=== PATIENT | female | born 1970 | race Caucasian/White ===

== ENCOUNTER 2017-08-26 08:47 | Emergency (ER) | END 2017-08-26 10:11 | disposition home or self-care (01) ==

== ENCOUNTER 2018-02-15 09:23 | Emergency (ER) | END 2018-02-15 10:44 | disposition home or self-care (01) ==

== ENCOUNTER 2018-07-09 13:35 | Emergency (ER) | payer OTHER ==
[~2018-07-09] VITALS: Ht 160 cm; Wt 96.2 kg
[~2018-07-09 13:35] MED LIST: CYCL10TA7 PO; IBUP-1544 PO; MED4DP PO; NAPR-985 PO
[2018-07-09 13:50] VITALS: BP 147/91; PULSE 66; RESP 20; Ht 160 cm; Wt 96.2 kg
[2018-07-09] MEDS ORDERED: METOCLOPRAMIDE 10 MG INJ IV ONE (15:00)
[2018-07-09] MEDS ORDERED: SOD CHLORIDE 0.9% 1,000 ML IV ONE (15:00)
[2018-07-09] MEDS ORDERED: DIPHENHYDRAMINE 50 MG INJ IV ONE (15:00)
[2018-07-09] MEDS ORDERED: BUTA1CAP38 PO (16:27)
--- NOTE | 2018-07-09 17:05 | ERD ---
ER Documentation Chief Complaint Chief Complaint NAQVI since yesterday; L side of face numbness; neuro intact HPI 47-year-old female patient with no significant past medical history presents to ED complaining of a headache that started yesterday. States that she feels like she has some left-sided facial numbness however denies any weakness. Reports that she has some slight left back pain. Denies any dysuria, urgency, frequency, fever, cough, chills, rhinorrhea. ROS All systems reviewed and are negative except as per history of present illness. Medications Home Meds Active Scripts Mhrsbieejo-Yxzksksldljru-Dyqdzeny* (Fioricet*) 50-300-40 Mg Capsule, 1 CAP PO Q6H, #20 CAP Prov:THANG ALVAREZ PA-C 07/09/18 Ibuprofen* (Ibuprofen*) 800 Mg Tablet, 800 MG PO Q8H PRN for PAIN, #30 TAB Prov:DANI JEAN BAPTISTE DO 02/15/18 Methylprednisolone* (Medrol* DOSE PACK) 4 Mg/Dose-Pack Tab.ds.pk, 4 MG PO . DIRECTED, #1 PACKET Prov:MIGDALIA THRASHER PA-C 08/26/17 Cyclobenzaprine Hcl* (Cyclobenzaprine Hcl*) 10 Mg Tablet, 10 MG PO TID, #15 TAB Prov:MIGDALIA THRASHER PA-C 08/26/17 Naproxen* (Naprosyn*) 500 Mg Tablet, 500 MG PO BID PRN for PAIN AND/OR INFLAMMATION, #30 TAB Prov:MIGDALIA THRASHER PA-C 08/26/17 Allergies Allergies: Coded Allergies: No Known Allergy (Unverified , 07/09/18) PMhx/Soc History of Surgery: Yes (left shoulder) Anesthesia Reaction: No Hx Neurological Disorder: No Hx Respiratory Disorders: Yes (asthma) Hx Cardiac Disorders: No Hx Psychiatric Problems: No Hx Miscellaneous Medical Probl: Yes (Right shoulder injury) Hx Alcohol Use: No Hx Substance Use: No Hx Tobacco Use: No Smoking Status: Never smoker FmHx Family History: No diabetes, No coronary disease Physical Exam Vitals Vital Signs Date Temp Pulse Resp B/P (MAP) Pulse Ox O2 O2 Flow FiO2 Time Delivery Rate 07/09/18 98.2 66 20 147/91 95 13:50 (109) Physical Exam Const: [id number], well-nourished. In no acute distress. Head: Atraumatic, normocephalic. No hematoma. No bynum sign. Eyes: Normal Conjunctiva without injection. No purulent discharge. PERRLA. EOMI ENT: Normal external ear. Ear canal without erythema. Tympanic membrane pearly correia without effusion or bulging. Nasal canal clear with normal turbinates. Moist oropharynx without tonsillar exudates. Non-erythematous pharynx. Uvula midline. No drooling. No trismus. Neck: No cervical midline tenderness. Full range of motion. No meningismus. No cervical lymphadenopathy. No JVD. Resp: Clear to auscultation bilaterally. No wheezing, rhonchi, rales, or crackles. No accessory muscle use. No retractions. Cardio: Regular rate and rhythm. No murmurs, rubs or gallops. Abd: Soft, non tender, non distended. Normal bowel sounds. No palpable masses. No rebound tenderness. No guarding. Negative McBurney's Point. Negative Tejeda's Sign. Skin: Normal skin turgor. No petechiae or rashes Back: No midline tenderness. No CVA tenderness. Ext: No cyanosis, or edema. Distal pulses intact bilaterally. Neur: Awake and alert. Normal gait. Normal coordination. Cranial Nerves II- VII intact. Normal finger to nose. Muscle strength 5/5. Sensation intact. Psych: Normal Mood and Affect Results 24 hrs Laboratory Tests Test 07/09/18 14:57 07/09/18 15:00 POC Beta HCG, Qualitative NEGATIVE Urine Color STRAW Urine Clarity SLIGHTLY CLOUDY Urine pH 6.0 Urine Specific [place] 1.003 Urine Ketones NEGATIVE mg/dL Urine Nitrite NEGATIVE mg/dL Urine Bilirubin NEGATIVE mg/dL Urine Urobilinogen NEGATIVE mg/dL Urine Leukocyte Esterase NEGATIVE Stormy/ul Urine Microscopic RBC 1 /HPF Urine Microscopic WBC 1 /HPF Urine Squamous Epithelial Cells FEW /HPF Urine Bacteria FEW /HPF Urine Hemoglobin 3+ mg/dL Urine Glucose NEGATIVE mg/dL Urine Total Protein NEGATIVE mg/dl Current Medications Medications Dose Sig/Mode Start Time Status Last (Trade) Ordered Route PRN Stop Time Admin Dose Reason Admin Sodium 1,000 ml @ Q1H ONCE 07/09/18 DC 07/09/18 Chloride 1,000 mls/hr IV 15:00 15:13 07/09/18 15:59 10 mg ONCE ONCE 07/09/18 DC 07/09/18 Metoclopramid IV 15:00 15:13 e HCl 07/09/18 15:01 (Reglan) 25 mg ONCE ONCE 07/09/18 DC 07/09/18 Diphenhydrami IV 15:00 15:13 ne HCl 07/09/18 15:01 (Benadryl) Procedures/MDM 47-year-old female patient with no significant past medical history presents to ED complaining of left-sided facial numbness, headache that started yesterday. Patient is neurologically intact. No slurred speech. Patient is afebrile and nontoxic-appearing. Patient was given 1 L normal saline, Reglan 10 mg, 25 mg IV Benadryl with improvement of her headache. IMPRESSION: 1. No acute intracranial hemorrhage, transcortical infarction or mass effect. If clinical concern persists consider brain MRI. 2. Minimal intracranial atherosclerosis and chronic small vessel ischemic changes. 3. Partially empty sella turcica. There is low suspicion for intracranial bleed, subarachnoid hemorrhage, meningitis, carotid dissection, epidural hematoma, epidural hematoma, TIA, stroke, seizures, or other emergent conditions. Diagnosis: Headache Discharge medications: Fioricet Follow up with primary care physician in 1-2 days for a referral to see a neurologist. Instructed patient to return to the ED sooner for any worsening symptoms. Patient's questions were answered. Patient is hemodynamically stable. Patient understood and agreed with discharge plan. Patient discharged stable. Disclaimer: Inadvertent spelling and grammatical errors are likely due to EHR/dictation software use and do not reflect on the overall quality of patient care. Also, please note that the electronic time recorded on this note does not necessarily reflect the actual time of the patient encounter. Departure Diagnosis: Primary Impression: Headache Headache type: unspecified Headache chronicity pattern: unspecified pattern Intractability: not intractable Qualified Codes: R51 - Headache Condition: Stable Patient Instructions: Self-Care for Headaches, Back Pain (Acute Or Chronic), Headache, Unspecified Referrals: COMMUNITY CLINICS YOU HAVE RECEIVED A MEDICAL SCREENING EXAM AND THE RESULTS INDICATE THAT YOU DO NOT HAVE A CONDITION THAT REQUIRES URGENT TREATMENT IN THE EMERGENCY DEPARTMENT. FURTHER EVALUATION AND TREATMENT OF YOUR CONDITION CAN WAIT UNTIL YOU ARE SEEN IN YOUR DOCTORS OFFICE WITHIN THE NEXT 1-2 DAYS. IT IS YOUR RESPONSIBILITY TO MAKE AN APPOINTMENT FOR FOLOW-UP CARE. IF YOU HAVE A PRIMARY DOCTOR --you should call your primary doctor and schedule an appointment IF YOU DO NOT HAVE A PRIMARY DOCTOR YOU CAN CALL OUR PHYSICIAN REFERRAL HOTLINE AT IF YOU CAN NOT AFFORD TO SEE A PHYSICIAN YOU CAN CHOSE FROM THE FOLLOWING [facility] [address] [facility] [address] [facility] [address] [facility] [address] [facility] [address] [facility]. [facility] [address] [facility]. [facility] YOU HAVE RECEIVED A MEDICAL SCREENING EXAM AND THE RESULTS INDICATE THAT YOU DO NOT HAVE A CONDITION THAT REQUIRES URGENT TREATMENT IN THE EMERGENCY DEPARTMENT. FURTHER EVALUATION AND TREATMENT OF YOUR CONDITION CAN WAIT UNTIL YOU ARE SEEN IN YOUR DOCTORS OFFICE WITHIN THE NEXT 1-2 DAYS. IT IS YOUR RESPONSIBILITY TO MAKE AN APPOINTMENT FOR FOLOW-UP CARE. IF YOU HAVE A PRIMARY DOCTOR --you should call your primary doctor and schedule and appointment IF YOU DO NOT HAVE A PRIMARY DOCTOR YOU CAN CALL OUR PHYSICIAN REFERRAL HOTLINE AT . IF YOU CAN NOT AFFORD TO SEE A PHYSICIAN YOU CAN CHOSE FROM THE FOLLOWING [facility]: [facility] [address] [place] [address] [facility] [address] [place] [address] [facility] [address] [place] [address] [facility] Additional Instructions: Llame al doctor MAANA y desiree jono RED PARA DENTRO DE 2-3 VALDEZ.Dgale a la secretaria que nosotros le instruimos hacer esta red.Avise o llame si hutchison condicin se empeora antes de la red. Regresa aqui si peor o no mejor. THANG ALVAREZ PA-C Jul 09, 2018 17:05
== END 2018-07-09 16:39 | disposition home or self-care (01) ==
LOC: FTE 13:35
DX: R51 Headache (principal); J45.909 Unspecified asthma, uncomplicated
CPT/HCPCS: 70450; 81001; 81025; 96374; 96375; J1200; J2765; Z7502